=== PATIENT | female | born 1995 | race Caucasian/White ===

== ENCOUNTER 2018-10-25 14:58 | Emergency (ER) | payer BC ==
[~2018-10-25] VITALS: Wt 78.0 kg
[2018-10-25 15:01] VITALS: BP 137/87; PULSE 87; RESP 18
[2018-10-25] MEDS ORDERED: IBUP-1542 PO (18:29)
--- NOTE | 2018-10-25 18:37 | ERD ---
ER Documentation Chief Complaint Chief Complaint ap , dull x 2 hrs, worsen today HPI 23-year-old female presents with approximately 1 week history of right lower quadrant abdominal pain. She has fevers, vomiting, urinary complaints, vaginal discharge. She denies that she was referred by urgent care for evaluation of right lower quadrant pain of uncertain etiology. ROS All systems reviewed and are negative except as per history of present illness. Medications Home Meds Active Scripts Ibuprofen* (Motrin*) 600 Mg Tab, 600 MG PO Q6, #20 TAB Prov:MISAEL BRICE MD 10/25/18 PMhx/Soc Medical and Surgical Hx: pt denies Medical Hx, pt denies Surgical Hx Hx Alcohol Use: Yes Hx Substance Use: No Hx Tobacco Use: No Smoking Status: Never smoker FmHx Family History: No diabetes, No coronary disease, No other Physical Exam Vitals Vital Signs Date Temp Pulse Resp B/P (MAP) Pulse Ox O2 O2 Flow FiO2 Time Delivery Rate 10/25/18 97.8 87 18 137/87 99 15:01 (104) Physical Exam Const: No acute distress Head: Atraumatic Eyes: Normal Conjunctiva ENT: Normal External Ears, Nose and Mouth. Neck: Full range of motion. No meningismus. Resp: Clear to auscultation bilaterally Cardio: Regular rate and rhythm, no murmurs Abd: Soft mild tender right lower abdomen. No exquisite tenderness at McBurney's point. No Willoughby sign and no rebound. Non distended. Normal bowel sounds Skin: No petechiae or rashes Back: No midline or flank tenderness Ext: No cyanosis, or edema Neur: Awake and alert Psych: Normal Mood and Affect Result Diagram: 10/25/18 1548 10/25/18 1548 Results 24 hrs Laboratory Tests Test 10/25/18 15:48 10/25/18 15:57 White Blood Count 6.6 10^3/ul Red Blood Count 5.11 10^6/ul Hemoglobin 15.3 g/dl Hematocrit 44.3 % Mean Corpuscular Volume 86.7 fl Mean Corpuscular Hemoglobin 29.9 pg Mean Corpuscular Hemoglobin Concent 34.5 g/dl Red Cell Distribution Width 11.6 % Platelet Count 251 10^3/UL Mean Platelet Volume 10.8 fl Immature Granulocytes % 0.500 % Neutrophils % 65.5 % Lymphocytes % 28.8 % Monocytes % 3.6 % Eosinophils % 1.1 % Basophils % 0.5 % Nucleated Red Blood Cells % 0.0 /100WBC Immature Granulocytes # 0.030 10^3/ul Neutrophils # 4.3 10^3/ul Lymphocytes # 1.9 10^3/ul Monocytes # 0.2 10^3/ul Eosinophils # 0.1 10^3/ul Basophils # 0.0 10^3/ul Nucleated Red Blood Cells # 0.0 10^3/ul Urine Color YELLOW Urine Clarity SLIGHTLY CLOUDY Urine pH 6.0 Urine Specific [place] 1.009 Urine Ketones TRACE mg/dL Urine Nitrite NEGATIVE mg/dL Urine Bilirubin NEGATIVE mg/dL Urine Urobilinogen NEGATIVE mg/dL Urine Leukocyte Esterase NEGATIVE Lena/ul Urine Microscopic RBC 1 /HPF Urine Microscopic WBC 2 /HPF Urine Squamous Epithelial Cells FEW /HPF Urine Bacteria FEW /HPF Urine Hemoglobin NEGATIVE mg/dL Urine Glucose NEGATIVE mg/dL Urine Total Protein NEGATIVE mg/dl Sodium Level 143 mmol/L Potassium Level 3.9 mmol/L Chloride Level 105 mmol/L Carbon Dioxide Level 27 mmol/L Anion Gap 11 Blood Urea Nitrogen 9 mg/dl Creatinine 0.60 mg/dl Est Glomerular Filtrat Rate mL/min > 60 mL/min Glucose Level 97 mg/dl Calcium Level 10.7 mg/dl Total Bilirubin 0.4 mg/dl Direct Bilirubin 0.00 mg/dl Indirect Bilirubin 0.4 mg/dl Aspartate Amino Transf (AST/SGOT) 20 IU/L Alanine Aminotransferase (ALT/SGPT) 26 IU/L Alkaline Phosphatase 90 IU/L Total Protein 8.1 g/dl Albumin 4.7 g/dl Globulin 3.40 g/dl Albumin/Globulin Ratio 1.38 Lipase 44 U/L POC Beta HCG, Qualitative NEGATIVE Procedures/MDM Pelvic ultrasound shows no acute abnormalities. Urine shows no signs of infection or acute abdomen is good CBC and CMP normal. CT abdomen pelvis performed shows nonobstructing kidney stones and right lower quadrant lymph nodes. Partially noted normal appendix identified. Patient declined any medication for pain. Patient is a history of quadrant abdominal pain. She has signs of mesenteric lymphadenitis as well as nonobstructing kidney stones. Because of her pain is uncertain. We will discharged home with ibuprofen, primary care follow-up and return precautions for fevers, vomiting, new worsening symptoms. Urine sent for gonorrhea chlamydia. The patient was stable with no new complaints during the ER course. Clinically, there is no current evidence to suggest meningitis, sepsis, acute abdomen, pneumonia, stroke, acute coronary syndrome, pulmonary embolism, aortic dissection or any other emergent condition appearing to require further evaluation or hospitalization. Patient counseled regarding my diagnostic impression and care plan. Prior to discharge all questions answered. Pt agrees with treatment plan and understands strict return precautions. Pt is instructed to follow up with primary care provider within 24-48 hours. Precautionary instructions provided including instructions to return to the ER if not improving or for any worsening or changing symptoms or concerns. Departure Diagnosis: Primary Impression: Abdominal pain Abdominal location: right lower quadrant Qualified Codes: R10.31 - Right lower quadrant pain Condition: Stable Patient Instructions: Abdominal Pain Referrals: NO PRIMARY,CARE PHYSICIAN (PCP) Additional Instructions: Only abnormality noted today is non-obstructing kidney stones and lymph nodes in area of pain. Urine sent for testing for infection and should return in the next week. Recheck for fevers, vomiting, new worsening symptoms or with primary care doctor. MISAEL BRICE MD Oct 25, 2018 18:37
== END 2018-10-25 18:46 | disposition home or self-care (01) ==
LOC: FTE 14:58
DX: R10.31 Right lower quadrant pain (principal)
CPT/HCPCS: 36415; 74176; 76856; 80053; 81001; 81003; 81025; 83690; 85025; 87591